=== PATIENT | female | born 1970 | race Caucasian/White ===

== ENCOUNTER → 2020-04-22 10:46 | Outpatient (CLI) | payer OTHER, SELFPAY ==
--- NOTE | ~2020-04-22 | XR_ITS ---
EXAMINATION: XR chest 2V 04/22/2020 10:59 INDICATION: Costochondritis. Xiphoid pain. PROCEDURE: 2 view chest COMPARISON: 12/17/2015 FINDINGS: The lungs are clear. The cardiomediastinal silhouette is within normal limits. There are no pleural effusions. There is no pneumothorax suspected. The lungs are hyperinflated which is cons istent with, but not diagnostic of chronic obstructive pulmonary disease. IMPRESSION: 1: NO ACUTE CARDIOPULMONARY DISEASE. Reviewed, dictated and finalized at location A. [employer]PERATOR
== END ==
DX: M94.0 Chondrocostal junction syndrome [Tietze] (principal); R07.89 Other chest pain
CPT/HCPCS: 71046

== ENCOUNTER 2021-07-26 15:02 | Emergency (ER) | payer OTHER, SELFPAY ==
[2021-07-26 15:20] VITALS: BP 114/73; PULSE 91; RESP 16; TEMP 37.3; O2SAT 100
--- NOTE | 2021-07-26 15:22 | ED.WOUNDLAC ---
HPI - Wound/Laceration General Chief Complaint: Wound/Laceration Stated Complaint: Laceration to Finger Time Seen by Provider: 07/26/21 15:22 Source: patient, RN notes reviewed and old records reviewed Mode of arrival: ambulatory Limitations: no limitations History of Present Illness HPI narrative: 50 year old female who presents to [facility] care with complaints of laceration to her left bradley index finger at PIP region while using electric nilam to do yard work about 45 minutes prior to arrival. Patient reports that she cleansed area with soap and water and applied wet paper towel over laceration prior to arrival. Patient has flap type of laceration to the bradley aspect of her left index finger with edges macerated,no acute bleeding from site. Patient repots that her tetanus is not up to date. Patient has full mobility of her left index finger with no tingling or numbness , strong left radial pulse present. Onset (ago): minute(s) (45 minutes prior to arrival) Location: other (left bradley index finger) Related Data Home Medications Medication Instructions Recorded Confirmed No Home Medications 07/26/21 07/26/21 Allergies Allergy/AdvReac Type Severity Reaction Status Date / Time iodine Allergy Unknown FLUSHING Verified 07/26/21 15:21 Review of Systems Review of Systems: CONSTITUTIONAL: Denies fever, chills, or sweats. EYES: Denies visual changes, redness, or discharge. ENT: Denies rhinorrhea, congestion, sore throat, or otalgia. CARDIOVASCULAR: Denies chest pain, palpitations, or edema. RESPIRATORY: Denies cough or dyspnea. GASTROINTESTINAL: Denies abdominal pain, nausea, vomiting, or diarrhea. GENITOURINARY: Denies dysuria or hematuria. SKIN: Denies rash or itching.Positive for 1cm flap type of laceration to the bradley aspect of left index finger at PIP region MUSCULOSKELETAL: Denies back pain, joint pain, or myalgia. NEUROLOGIC: Denies headache, numbness, or weakness. PSYCHIATRIC: Denies anxiety or depression. All systems reviewed & are unremarkable except as noted in HPI and below PMFSH Past Medical History Medical History Encounter to establish care Multiple sclerosis involving brainstem Seasonal allergies Surgical History Surgical History History of hysterectomy 2007 Family History Family History Father Diabetes mellitus Cancer Grandparent Lung cancer Grandparent Acute myocardial infarction Grandparent Cancer Social History Social History Smoking status: Never smoker Alcohol intake: never Substance use: never Comments At time of signature, agree with nursing past medical, surgical, social and family history. There is no relevant family history pertinent to the presenting complaint Exam Narrative: GENERAL: Well-appearing, well-nourished, and in no acute distress. HEAD: Normocephalic, atraumatic. EYES: PERRLA and EOMI. ENT: Nares clear, no rhinorrhea or epistaxis. Mucous membranes moist.TM's normal with good light reflex, throat pink with no lesions or exudates or tonsil swelling NECK: Supple.no lymphadenopathy CHEST: Clear to auscultation. No respiratory distress.SAO2 100% on room air HEART: Regular rate and rhythm. No murmur heard. Normal peripheral pulses. ABDOMEN: Soft, nontender, nondistended, normal active bowel sounds. EXTREMITIES: Normal range of motion. No edema. SKIN: Warm, dry, 1cm flap laceration with macerated edges to left bradley index finger at PIP joint region, full mobility and sensation intact to left index finger, no acute drainage bleeding. NEURO: No focal deficits. Alert and oriented x3. Course Course Level of Care: Express Care Visit Vital Signs Vital signs: Vital Signs Temperature 37.3 C 07/26/21
[2021-07-26] MEDS: TETANUS,DIPHTHERIA,AC PERTUSSIS ADULT (0.5 ML) BOOSTRIX IM (15:28)
== END 2021-07-26 16:19 | disposition home or self-care (01) ==
PROVIDERS: Emergency Provider Registered Nurse
DX: S61.211A Laceration without foreign body of left index finger without damage to nail, initial encounter (principal); W29.3XXA Contact with powered garden and outdoor hand tools and machinery, initial encounter; Z23 Encounter for immunization; G35 Multiple sclerosis
CPT/HCPCS: 90471; 90715; 99213; G0463